=== PATIENT | male | born 1960 | race Two or more races ===

== ENCOUNTER → 2019-08-23 | Outpatient (CLI) | payer OTHER ==
[~2019-08-23] MED LIST: ATOR20TA37 PO; DEXAMETHASONE 4 MG/ML, 1ML ONE; FENTANYL PF 250 MCG/5ML ONE; GLYCOPYRROLATE 0.2MG/1ML, 5ML ONE; LIDOCAINE-MPF 2% ,5ML ONE; LISI1TAB20 PO; METF500T17 PO; MIDAZOLAM 1 MG/ML, 2ML ONE; PROPOFOL 10 MG/ML, 20ML ONE; ROCURONIUM 10MG/ML,5ML ONE
== END | disposition home or self-care (01) ==
LOC: STAR 13:38
PROVIDERS: ATTEND Surgery
DX: Z01.818 Encounter for other preprocedural examination (principal)
CPT/HCPCS: 93005

== ENCOUNTER 2019-08-25 10:33 | Day surgery (SDC) | payer OTHER ==
[2019-08-23 14:40] LABS: ALANINE AMINOTRANSFERASE 38 U/L (12-78); ALBUMIN 4.4 g/dL (3.4-5.0); ANION GAP 3 mmol/L (5-15); CALCIUM 9.4 mg/dL (8.5-10.1); CHLORIDE 105 mmol/L (98-107); CREATININE 0.99 mg/dL (0.7-1.3)
[2019-08-23 14:42] LABS: ALKALINE PHOSPHATASE 122 U/L (45-117); BILIRUBIN,TOTAL 1.5 mg/dL (0.2-1.0); TOTAL PROTEIN 7.9 g/dL (6.4-8.2)
[~2019-08-25] VITALS: Ht 162.6 cm; Wt 75.3 kg
[~2019-08-25 10:33] MED LIST changes: -DEXAMETHASONE 4 MG/ML, 1ML ONE; -FENTANYL PF 250 MCG/5ML ONE; -GLYCOPYRROLATE 0.2MG/1ML, 5ML ONE; -LIDOCAINE-MPF 2% ,5ML ONE; -MIDAZOLAM 1 MG/ML, 2ML ONE; -PROPOFOL 10 MG/ML, 20ML ONE; -ROCURONIUM 10MG/ML,5ML ONE
[2019-08-25] MEDS ORDERED: BUPIVACAINE/EPI 0.5% 1:200K ONE (10:52)
[2019-08-25] MEDS ORDERED: LACTATED RINGERS 1,000 ML IV SCH (11:10)
[2019-08-25 11:13] VITALS: BP 128/88
[2019-08-25] MEDS ORDERED: CHLORHEXIDINE 15 ML UDC ONE (11:17)
[2019-08-25] MEDS ORDERED: CHLORHEXIDINE 15 ML UDC MM ONE (11:30)
[2019-08-25] MEDS ORDERED: BUPIVACAINE/PF 0.5% ONE (12:05)
[2019-08-25] MEDS ORDERED: EPINEPHRINE 1 MG/ML, 1ML ONE (12:05)
[2019-08-25] MEDS ORDERED: NEOSTIGMINE 1 MG/ML, 10ML ONE (12:39)
[2019-08-25] MEDS ORDERED: PROPOFOL 10 MG/ML, 20ML ONE (12:39)
[2019-08-25] MEDS ORDERED: CEFAZOLIN 1,000 MG ONE (12:39)
[2019-08-25] MEDS ORDERED: ROCURONIUM 10 MG/ML,10ML ONE (12:39)
[2019-08-25] MEDS ORDERED: DEXAMETHASONE 4 MG/ML, 1ML ONE (12:39)
[2019-08-25] MEDS ORDERED: DIAZEPAM 5 MG/ML, 2ML IVPush PRN (14:30)
[2019-08-25] MEDS ORDERED: LABETALOL 5MG/ML, 20ML IV PRN (14:30)
[2019-08-25] MEDS ORDERED: HYDROmorphone 1 MG/ML, 1ML INJ IVPush PRN (14:30)
[2019-08-25] MEDS ORDERED: LORazepam 2 MG/ML, 1ML IVPush PRN (14:30)
[2019-08-25] MEDS ORDERED: ACETAMINOPHEN 325 MG TABLET PO PRN (14:30)
[2019-08-25] MEDS ORDERED: MIDAZOLAM 1 MG/ML, 2ML IV PRN (14:30)
[2019-08-25] MEDS ORDERED: ONDANSETRON 2MG/ML, 2ML IVPush PRN (14:30)
[2019-08-25] MEDS ORDERED: hydrALAzine 20 MG/ML, 1ML IV PRN (14:30)
[2019-08-25] MEDS ORDERED: HYDROcodone/APAP 7.5-325MG/15ML UDC PO PRN (14:30)
[2019-08-25] MEDS ORDERED: METOCLOPRAMIDE 5 MG/ML, 2ML IVPush PRN (14:30)
[2019-08-25] MEDS ORDERED: HALOPERIDOL 5 MG/ML IV PRN (14:30)
[2019-08-25] MEDS ORDERED: KETOROLAC 30 MG/1 ML IVPush PRN (14:30)
[2019-08-25] MEDS ORDERED: OXYcodone 5 MG/5 ML ORAL.SOL UDC PO PRN (14:30)
[2019-08-25] MEDS ORDERED: ALBUTEROL/IPRATROPIUM 2.5MG/0.5MG, 3 ML NPPB PRN (14:30)
[2019-08-25] MEDS ORDERED: EPHEDRINE 50 MG/ML, 1ML IVPush PRN (14:30)
[2019-08-25] MEDS ORDERED: EPHEDRINE 50 MG/ML, 1ML IM PRN (14:30)
[2019-08-25] MEDS ORDERED: OXYcodone 5 MG/5 ML ORAL.SOL UDC ONE (14:45)
[2019-08-25] MEDS ORDERED: FENTANYL PF 100 MCG/2ML ONE (15:07)
[2019-08-25] MEDS: FENTANYL PF 100 MCG/2ML IV PRN ×2 (15:08→15:13)
== END 2019-08-25 17:25 | disposition home or self-care (01) ==
LOC: OUT 10:33
PROVIDERS: ATTEND Surgery
DX: K40.20 Bilateral inguinal hernia, without obstruction or gangrene, not specified as recurrent (principal); Z11.59 Encounter for screening for other viral diseases; D17.6 Benign lipomatous neoplasm of spermatic cord; E11.9 Type 2 diabetes mellitus without complications; I10 Essential (primary) hypertension; E78.5 Hyperlipidemia, unspecified; Z79.84 Long term (current) use of oral hypoglycemic drugs; Z79.899 Other long term (current) drug therapy; Z98.890 Other specified postprocedural states
CPT/HCPCS: 36415; 49650; 80053; 82962; 87635; C1781; J0690; J1100; J2250; J2704; J2710; J3010; J7120; S2900; J0171